=== PATIENT | male | born 1960 | race Caucasian/White ===

== ENCOUNTER 2022-11-15 08:32 | Observation (INO) ==
--- NOTE | 2022-10-25 11:35 | PAT Medication Instructions ---
Medication Instructions Date of Service October 25, 2022 Home Medications Balance Of Nature 3 cap PO DAILY STOP taking 2 weeks before surgery (or as soon as possible if surgery is within 2 weeks) Balance Of Nature 3 cap PO DAILY Other Notes NOTHING TO EAT OR DRINK AFTER MIDNIGHT. If you have any questions please call us at [phone] or [phone] or or [phone]
--- NOTE | 2022-10-28 12:17 | Anesthesiology Consultation ---
Date of Service October 28, 2022 Assessment & Plan (1) Encounter for pre-operative examination: - COVID screening: Per assessment on 10/28: No current COVID-19 related symptoms. Travel screen negative. Patient's girlfriend (household member) developed sinus infection/URI symptoms 1.5 weeks ago (significantly improved but not entirely resolved currently). He indicates that she was evaluated by urgent care and it was determined to be related to chronic sinus issues. She did not have formal Covid testing. Patient has continued to remain asymptomatic. Covid test done 10/28/22 at PAT- result was negative. Patient was advised to contact PAT/surgeon if development of symptoms prior to surgery. - Outpatient joint assessment: Pt currently scheduled for inpatient pathway. If surgeon requests review for outpatient joint pathway, patient is acceptable candidate for outpatient joint program from anesthesia standpoint pending surgeon's office assessment that patient is motivated, has good support and completes [facility] Program preop requirements. Chart Review Chart Review: Acceptable Risk for Surgery and Patient seen in Pre Admission Testing Teaching & Discussion Pre-Anesthesia Teaching/Discussion Notes: Instructed NPO after midnight before surgery,except medications with 15 cc of water. Medication instructions provided according to the PAT guidelines. History Surgery Operation Date: 11/15/22 11:55 Proposed Procedures p Right Lateral Total Hip Arthroplasty - Rudy Ma DO Height/Weight Height: 5 ft 10 in Weight: 132.5 kg Allergies Allergy/AdvReac Type Severity Reaction Status Date / Time No Known Allergies Allergy Verified 10/22/22 11:14 Medications Home Medications Medication Instructions Recorded Confirmed Last Taken Balance Of Nature 3 cap PO DAILY 10/22/22 10/22/22 Unknown Prostate Health 1 tab PO DAILY 10/28/22 10/28/22 Unknown multivitamin 1 tab PO DAILY 10/28/22 10/28/22 Unknown Past Medical History Medical History DJD (degenerative joint disease) Hx of renal calculi passed without intervention Osteoarthritis Exercise / Class Metabolic Activity II 4-5 Yardwork/Stairs/Walk up hill Past Surgical History Surgical History History of tonsillectomy Hx of umbilical hernia repair Past Anesthesia History No Hx of Anesthesia Complications and No Family Hx of Anesthesia Complications History of PONV No Hx of PONV and No Hx of Motion Sickness Social History Smoking Status: Former smoker Do You Dip or Chew Tobacco: No Smoking End Date: Quit 15 years ago (light smoker/social smoker) Hx Alcohol Use: Yes alcohol intake frequency: a few times a month Hx Substance Use: No substance use type: does not use Review of Systems Patient denies chest pain, shortness of breath, dyspnea on exertion, fever, chills, cough, wheezing, palpitations. Physical Exam Vital Signs VITALS BP 132/82 P 77 TEMP 98.9 SP02 95%RA RESP 18 PHYSICAL Full cervical extension range of motion. Full TMJ range of motion. TMD 3 finger breaths Mallampati Score 2 Dentition: missing sides Lungs: clear throughout to auscultation Cardiac: regular rate and rhythm, no murmurs noted Spine: normal Carotid arteries: negative bruit Extremities: no LE edema Lab Results Anesthesia Preop Results Results Anesthesia Widget: WBC 7.95 K/ul (4.8-10.8) 10/28/22 Hgb 15.1 g/dl (14.0-18.0) 10/28/22 Hct 43.8 % (42.0-52.0) 10/28/22 Plt 240 K/uL (130-400) 10/28/22 Na 139 mmol/L (136-145) 10/28/22 K 4.4 mmol/L (3.5-5.1) 10/28/22 Cl 105 mmol/L (98-107) 10/28/22 CO2 27 mmol/L (21-32) 10/28/22 BUN 18 mg/dl (6-23) 10/28/22 Creat 0.93 mg/dl (0.6-1.4) 10/28/22 Glucose Level 133 mg/dl (70-99(Fasting)) H 10/28/22 PT 9.9 Seconds (9.0-12.0) 10/28/22 PTT 29.3 Seconds (21.0-31.0) 10/28/22 INR 0.9 (0.9-1.1) 10/28/22 Blood Type A Negative 10/28/22 Antibody Screen NEGATIVE 10/28/22 Testing Electrocardiogram Date: 10/28/22 NSR at 76bpm. Chest X-Ray Date: 10/28/22 Findings: + NAD COVID-19 Risk Screen Screening Information COVID-19 Screen Date: 10/28/22 Exposure 21 Days Family/Household +COVID Last 21 Days: No Exposure 10 Days Any COVID Exposure Last 10 Days: No Symptoms Last 10 Days Experienced COVID Sx Last 10 Days: No + COVID 0-90 Days COVID + in Last 0-90 Days: No
[~2022-11-15 08:32] MED LIST: ACETAMINOPHEN 500 MG TAB PO SCH; BUPIVACAINE 0.5 % 5 MG/1 ML PF 10ML VIAL ONE; FAMOTIDINE 20 MG TAB PO SCH; GABAPENTIN 600 MG DOSE PO SCH; LR 60ML/HR IV SCH; ORTHO JOINT MIX INFIL SCH; TRANEXAMIC ACID 1,000 MG **IV Intra-op IV SCH; TRANEXAMIC ACID 1,000 MG **IV Pre-op IV SCH; ceFAZolin 2000MG 2,000 MG/15 ML SYR IV SCH; dexAMETHasone 4 MG TAB PO SCH
[2022-11-15] MEDS: LR 500ML BOLUS, THEN 15ML/HR IV SCH ×2 (09:05→10:50)
[2022-11-15] MEDS ORDERED: MoRPHine SULFATE 10 MG/ML CARP/VIAL IV PRN (09:11)
[2022-11-15] MEDS ORDERED: ePHEDrine sulfate 50 MG/ML AMP IV PRN (09:11)
[2022-11-15] MEDS ORDERED: ATROPINE SULFATE 0.1 MG/ML 10ML SYR IV PRN (09:11)
[2022-11-15] MEDS ORDERED: ONDANSETRON INJ 2 MG/ML 2 ML VIAL IV PRN ×2 (09:11→15:00)
--- NOTE | 2022-11-15 10:09 | History & Physical Bridge Note ---
Date of Service November 15, 2022 History & Physical Bridge Note I have examined the patient, reviewed the History & Physical and in the interval since the performance of the History & Physical I have noted the following changes of clinical significance: no changes noted
[2022-11-15] MEDS ORDERED: fentaNYL citrate PF 100 MCG/2 ML VIAL ONE (10:17)
[2022-11-15] MEDS ORDERED: MIDAZOLAM HCL 1 MG/ML 2ML VIAL ONE ×2 (10:18→12:26)
[2022-11-15] MEDS ORDERED: ORTHO JOINT ANESTHETIC ONE (10:35)
[2022-11-15] MEDS ORDERED: ceFAZolin 3000MG/72.5 ML BAG IV ONE (11:07)
[2022-11-15] MEDS ORDERED: Nursing to Pharmacy Communication SCH (11:15)
[2022-11-15] MEDS ORDERED: ePHEDrine sulfate 50 MG/ML AMP ONE (11:33)
[2022-11-15] MEDS ORDERED: KETAMINE 50 MG/5 ML SYRINGE ONE (11:40)
--- NOTE | 2022-11-15 13:22 | Operative Report ---
PG Post Operative Report Pre & Post Diagnosis Operation Date: 11/15/22 11:00 Pre-Op Diagnosis: Degenerative Joint Disease Right Hip Post-Op Diagnosis: Degenerative Joint Disease Right Hip I identified the patient and participated in the time-out.: Yes Procedure Operation Date: 11/15/22 11:00 Actual Procedures p Right Total Hip Arthroplasty(Right) - Rudy Ma DO Surgeon Rudy Ma DO [employer] Rudy Cooper PA-C Estimated Blood Loss 300 Findings Consistent with Post-Op Diagnosis Specimens Right femoral head Description of Procedure Implants used: I used a [employer] right total hip arthroplasty system with a size 56 G7 cup with a polyethylene insert and a size 2 standard offset Avenir complete collared femoral stem with a 40 mm ceramic head and a +7 neck. On November 15, 2022 Silvio arrived at [facility] for above procedure. He was significant for an area in the upper extremity identified and signed. He was given a preoperative antibiotic.. He was given a spinal anesthetic. He seen back the operative room and laid on the table in supine position. He was given basic sedation. He was then point to the lateral decubitus position. The right hip was prepped and draped in sterile fashion. A timeout was done. The patient and the operative extremity was properly identified. In direct lateral approach was used. Dissection was taken down through the fascia. The IT band was split. The abductors were exposed. The anterior third the abductors were tenotomized off the greater trochanter. The capsule was then excised. The hip was then dislocated. The femoral neck was then resected and the femoral head was removed. The osteotomy was then exposed. Time was spent doing a complete circumferential capsule labral release. Sequential reaming of the acetabulum up to a size 55 reamer was done. A 56 mm G7 cup was then impacted in the place. A single 20 mm screw was placed. The polyethylene liner was then snapped into place. The femoral neck was then elevated and exposed. Sequential broaching up to a size 2 broach was done. A standard femoral neck and a +7 head was then trialed. The hip was then reduced. The hip was brought through full range of motion and felt to be stable. A single flatplate x-ray was done and I was happy with the overall size and alignment of the components. The hip was then dislocated. The final size 2 Avenir standard offset collared stem was then impacted into place. A 40 mm humeral head with a 7 mm neck was then impacted in the place. The hip was then reduced. Hip was brought through full range of motion and felt to be stable. The wound was then irrigated. A 3- minute Betadine lavage was done. The abductors were tenodesed back to the greater trochanter with transosseous FiberWire sutures and side to side sutures. The IT band was then closed with #1 Vicryl. Skin was closed with 2-0 Vicryl and juliet. He was then placed in a soft dressing. He was then transferred to a hospital bed and taken to the postanesthesia care unit in stable condition. He tolerated the procedure well. Rudy Cooper PA-C, was present for the entire procedure. He was critical for patient positioning, prepping, draping, retraction exposure, wound closure and application of sterile dressing. I attest to the content of the Intraoperative Record and any orders documented therein. Any exceptions are noted below.
[2022-11-15] MEDS ORDERED: PROPOFOL IV EMULSION 10 MG/ML 20 ML VIAL IV ONE (13:35)
[2022-11-15] MEDS ORDERED: LIDOCAINE 2% 2 ML VIAL/AMP(20MG/ML) INFIL ONE (13:51)
[2022-11-15] MEDS: fentaNYL citrate PF 100 MCG/2 ML VIAL IV PRN ×2 (14:07→14:12)
--- NOTE | 2022-11-15 14:35 | XRay Report ---
XR hip 1V RT w pelvis HISTORY: 62 years-old Male IN PACU - Post Surgical COMPARISON: 11/15/2022 TECHNIQUE: AP view of the pelvis with crosstable lateral view of the right hip. FINDINGS: Mild to moderate left hip osteoarthritis. Right hip arthroplasty demonstrates satisfactory alignment without acute fracture, dislocation or unexpected opaque foreign body. Lateral skin juliet with expe cted postoperative soft tissue swelling and deep tissue air. IMPRESSION: Right hip arthroplasty with expected postoperative changes. ACT 112: Negative or not required by law. The above report was generated using voice recognition software. It may contain grammatical, syntax o r spelling errors. Electronically signed by: Ede Grayson M.D. 11/15/2022 2:34 PM
[2022-11-15] MEDS ORDERED: HYDROmorphone INJ 0.5 MG/0.5 ML SYR IV PRN (15:00)
[2022-11-15] MEDS ORDERED: bisacodyL 10 MG SUPP PR PRN (15:00)
[2022-11-15] MEDS ORDERED: METOCLOPRAMIDE HCL INJ 5 MG/ML 2 ML VIAL IV PRN (15:00)
[2022-11-15] MEDS ORDERED: MAGNESIUM HYDROXIDE SUSP 30 ML UDC PO PRN (15:00)
[2022-11-15] MEDS ORDERED: NALOXONE HCL 0.4 MG/1 ML VIAL/CARP IV PRN (15:00)
--- NOTE | 2022-11-15 15:01 | Anesthesiology Progress Note ---
Date of Service November 15, 2022 Anesthesia Post Procedure Vital Signs Vital Signs: Temp Pulse Pulse Resp BP Pulse Ox O2 Del Method 11/15/22 14:30 36.6 C 74 18 148/76 H 96 Room Air 11/15/22 14:20 77 14 131/77 95 Room Air 11/15/22 14:10 72 12 145/68 H 96 Room Air 11/15/22 14:00 76 22 141/78 H 94 Room Air 11/15/22 13:50 78 18 143/81 H 97 Oxymask 11/15/22 13:40 36.8 C 75 18 153/86 H 97 Oxymask 11/15/22 09:27 126/66 11/15/22 08:55 36.8 C 74 20 197/109 H 95 Room Air O2 Flow Rate 11/15/22 14:30 11/15/22 14:20 11/15/22 14:10 11/15/22 14:00 11/15/22 13:50 4 11/15/22 13:40 6 11/15/22 09:27 11/15/22 08:55 Pain Intensity Right Hip: Pain Intensity: 4 Notes Mental Status: alert / awake / arousable Patient Amnestic to Procedure: Yes Nausea / Vomiting: adequately controlled Pain: adequately controlled Airway Patency, RR, SpO2: stable & adequate BP & HR: stable & adequate Hydration State: stable & adequate Neuraxial Anesthesia: was administered and sensory block is resolving Anesthetic Complications: no major complications apparent
[2022-11-15] MEDS: KETOROLAC 30 MG/ML VIAL IV SCH ×2 (15:16→20:25)
[2022-11-15] MEDS: SODIUM CHLORIDE 0.9% 1000ML 1,000 ML IV SCH (15:16)
--- NOTE | 2022-11-15 16:44 | XRay Report ---
XR hip RT 1V CLINICAL HISTORY: RIGHT XTABLE HIP IN OR WITH PORTABLE XRAY MACHINE COMPARISON: Pelvis and right hip radiographs October 20, 2022. FINDINGS: Portable crosstable lateral radiograph of the right hip during right hip arthroplasty is n oted. No fracture is noted. Alignment appears anatomic. IMPRESSION: Intraoperative crosstable lateral radiograph during right hip arthroplasty, as above. ACT 112: Negative or not required by law. Electronically signed by: Neto Rojas M.D. 11/15/2022 4:42 PM
[2022-11-15] MEDS: ACETAMINOPHEN 500 MG TAB PO SCH (17:48)
[2022-11-15] MEDS: ceFAZolin 2000MG 2,000 MG/15 ML SYR IV SCH (20:25)
[2022-11-15] MEDS: SENNA 8.6 MG TAB PO SCH (20:26)
[2022-11-15] MEDS: ASPIRIN 81 MG ECTAB PO SCH (20:26)
[2022-11-15] MEDS: DOCUSATE SODIUM 100 MG CAP PO SCH (20:26)
[2022-11-15] MEDS: oxyCODONE HCL IR 5 MG TAB (IMMEDIATE RELEASE) PO PRN (22:11)
[2022-11-16] MEDS: SODIUM CHLORIDE 0.9% 1000ML 1,000 ML IV SCH (01:31)
[2022-11-16] MEDS: ACETAMINOPHEN 500 MG TAB PO SCH ×3 (01:32→16:42)
[2022-11-16] MEDS: KETOROLAC 30 MG/ML VIAL IV SCH ×4 (03:19→20:25)
[2022-11-16] MEDS: ceFAZolin 2000MG 2,000 MG/15 ML SYR IV SCH (03:20)
--- NOTE | 2022-11-16 07:03 | Orthopedic Progress Note ---
Date of Service November 16, 2022 Assessment & Plan (1) Status post right hip replacement: Overall he is doing fairly well. Is not having much pain in the right hip. He will be seen by physical therapy today for ambulation and range of motion exercises. He is on aspirin for DVT prophylaxis. He can be discharged home later today. He will follow-up with orthopedics in 2 weeks. Ryan Anguiano was seen and examined at bedside this morning. Overall is doing fairly well. He is not having too much pain in the right hip. He has been up and ambulating around his room. He has no complaints.. Review of Systems All systems reviewed & are unremarkable except as noted in HPI & below. Physical Exam On physical examination of the right hip, the dressing is clean and dry. He has active dorsiflexion plantarflexion of his right ankle.. Results & Data Results & Data Laboratory Results . Diagnostic Findings Postoperative x-rays of the right hip show the prosthesis to be in good alignment without any evidence of fracture, desiccation, or loosening.. PG Care Time/CCT Total # of Minutes Spent Total Time Spent with Patient: Total time spent is greater than 50% in coordination of care (as documented) at patient's floor/unit and/or counseling patient: Coding Level of Care Code 26209 Post Operative Follow-Up Diagnoses Status post right hip replacement Z96.641
--- NOTE | 2022-11-16 07:03 | Discharge Summary ---
Date of Service November 16, 2022 Principal Diagnosis Same as "Discharge Diagnosis" noted below under Discharge Instructions. Discharge Exam On physical examination of the right hip, the dressing is clean and dry. He has active dorsiflexion plantarflexion of his right ankle.. Discharge Data Procedures Performed Operation Date: 11/15/22 11:00 Actual Procedures p Right Lateral Total Hip Arthroplasty(Right) - Rudy Ma DO Hospital Course (1) Status post right hip replacement: On November 15, 2022 Silvio arrived at [facility] and underwent a right hip replacement without complication. He had a spinal anesthetic. Postoperatively he was started on aspirin for DVT prophylaxis and transferred to the general orthopedic floors. His hospital course was uneventful. On postop day #1, his vital signs were stable and his pain was well controlled. He was able to participate well with physical therapy doing ambulation and range of motion exercises. He was then discharged home. He will follow-up with orthopedics in 2 weeks. PG Care Time/CCT Total # of Minutes Spent Total Time Spent with Patient: Total time spent is greater than 50% in coordination of care (as documented) at patient's floor/unit and/or counseling patient: Discharge Plan Discharge Items Patient Disposition: Home - Home Health Services Reason For Visit: Degenerative Joint Disease Right Hip Discharge Diagnosis: Right hip replacement Activity: As commented below Non-emergency contact: Surgeon Call non-emergency contact if: your wound has increased redness and your wound has increased drainage Follow-up/Referrals: PCP,NO [Primary Care Provider] - Diet: Regular Addtl Attending Provider Instructions: Activity and Therapy Recommendations: * If you are using [facility] then therapy will be provided at your home until they feel you have accomplished all of your goals. * If you are using [facility] then Physical Therapy will be provided until they feel you are ready to start Outpatient Physical Therapy. * If you are not using home therapy then Outpatient Physical Therapy should start about 3-5 days from your day of surgery. Therapy will last about 6-10 weeks * You were shown a series of exercises in the hospital. Do these exercises three times each day including the exercises you were shown in physical therapy. * Get up and walk several times each day.~ For the first four weeks, try not to stand or walk for more than one hour at a time. If you do stand or walk for more than one hour, you will not hurt anything, but your leg will likely swell.~~ * As you feel comfortable, you may change from the walker or crutches to a cane and~then to independent walking. Medications: * Narcotic You will likely be sent home from the hospital with a prescription for the narcotic pain medication that worked best throughout your stay. * Aspirin Most patients will be required to take Aspirin 81mg twice a day for 6 weeks after surgery. This is obtained [id number] and a prescription is not necessary. * Other medications may be prescribed for specific circumstances. If you have any questions, please call the office at . * Resume previous home medications unless otherwise instructed TEDs/Elastic Stockings: The white elastic stockings help limit swelling and prevent blood clots from forming in your legs. The more you wear them, the more they work. Wear them for six weeks. Dressing Care: Leave the initial dressing on for 48 hours. After that, you can do daily dry dressing changes. If the incision is not draining, the juliet can be left open to air. The juliet will be removed at your 2 week follow-up appointment. Showering: You may shower 5 days after a day of surgery, as long as the incision is not draining. Let soapy water run over the juliet and pat them dry. Do not scrub or soak the incision. Things To Watch For: * Drainage from the incision site that occurs more than one week after your surgery. * Increased redness at the incision site. * Fever above 102 degrees Fahrenheit. * Unusual chest pain or shortness of breath. * Call [facility] at with any of the above problems Follow-Up Visit: Follow-up with Dr. Ma's PA (Rudy Cooper) 2-3 weeks after your day of surgery. He will remove your juliet and answer any questions. If you have any additional questions or concerns, Dr Ma is usually in the office at the same time and will be available An appointment was probably scheduled when you signed-up for surgery in the office. If you have any questions call Office Instructions: More detailed instructions as well as Frequently Asked Questions were provided in a folder by our office when you signed-up for surgery. Please review these instructions when you get home. If you have any further questions or concerns, please feel free to call the office at [phone] Pending Studies at Discharge: No Stand-Alone Forms: [facility] Medications and DC Order Prescriptions: New aspirin 81 mg Tablet,Delayed Release (Dr/Ec) 81 mg PO BID 42 Days Qty: 84 0RF oxycodone 5 mg Tablet 5 mg PO Q4H PRN (Reason: pain) Qty: 30 0RF Continued Balance Of Nature 3 cap PO DAILY Prostate Health 1 tab PO DAILY multivitamin 1 tab PO DAILY Admission Data Admit Date/Time: 11/15/22 13:40 Attending Provider: Rudy Ma Admit Provider: Rudy Ma Primary Care Provider: PCP,BETO
[2022-11-16] MEDS: MULTIVITAMIN TAB PO SCH (07:47)
[2022-11-16] MEDS: DOCUSATE SODIUM 100 MG CAP PO SCH ×2 (07:47→20:25)
[2022-11-16] MEDS: ASPIRIN 81 MG ECTAB PO SCH ×2 (07:47→20:25)
[2022-11-16] MEDS: oxyCODONE HCL IR 5 MG TAB (IMMEDIATE RELEASE) PO PRN (07:47)
[2022-11-16] MEDS ORDERED: dexAMETHasone 4 MG TAB PO SCH (08:00)
[2022-11-16] MEDS: SENNA 8.6 MG TAB PO SCH (20:25)
[2022-11-17] MEDS: KETOROLAC 30 MG/ML VIAL IV SCH ×2 (02:13→08:21)
[2022-11-17] MEDS: ACETAMINOPHEN 500 MG TAB PO SCH ×2 (02:13→08:21)
[2022-11-17] MEDS: MULTIVITAMIN TAB PO SCH (08:20)
[2022-11-17] MEDS: ASPIRIN 81 MG ECTAB PO SCH (08:20)
[2022-11-17] MEDS: DOCUSATE SODIUM 100 MG CAP PO SCH (08:21)
[2022-11-17] MEDS: oxyCODONE HCL IR 5 MG TAB (IMMEDIATE RELEASE) PO PRN (10:02)
== END 2022-11-17 10:33 | disposition home health service (06) ==
LOC: 3E 08:32 → ASU 08:32